=== PATIENT | male | born 2005 | race Caucasian/White ===

== ENCOUNTER 2025-05-06 12:55 | Emergency (ER) | payer BC, OTHER ==
[2025-05-06] MEDS: Bacitracin Oint 1 GM U/D Packet TOP ONE (13:13)
[2025-05-06] MEDS: Diphtheria,Pertussis(Acell),Tetanus Vaccine 0.5 ML Syringe IM ONE (13:26)
== END 2025-05-06 13:31 | disposition home or self-care (01) ==
LOC: DL.ED 12:55
DX: S00.05XA Superficial foreign body of scalp, initial encounter (principal); Z23 Encounter for immunization; W44.8XXA Other foreign body entering into or through a natural orifice, initial encounter
CPT/HCPCS: 90471; 90715; 99282; 99283-25; A9270-GY; J2003